=== PATIENT | male | born 1965 ===

== ENCOUNTER → 2021-01-11 | Outpatient (CLI) | payer BC, OTHER ==
[~2021-01-11] VITALS: Ht 180.3 cm; Wt 120.2 kg
[~2021-01-11] MED LIST: ADDERALL 30 MG30 MG PO; ADVIL PM CAPLE1 EACH PO; FLEXERIL PO; HYDROCODON-ACE1 EAC8 PO; PROZAC40 MG PO; VALIUM10 MG PO
[2021-01-11 10:34] VITALS: BP 121/80
--- NOTE | 2021-01-11 11:17 | NUR ---
Pain Clinic Assessment: 1. History of Osteoarthritis: SPINE JOINTS History of Rheumatoid Arthritis: UNKNOWN 2. Height: 5 ft. 11 in. 180.3 cm. Weight: 265.0 lb. oz. 120.204 kg. Patient's BMI: 37.0 3. Vital Signs: BP: 121/80 Pulse: 98 Resp: 20 Temp: 02 Sat: 98 ECG Mon: 4. Pain Intensity: 2 UP TO 10 (WORST IN AM) 5. Fall Risk: Dizziness: N Needs help standing or walking: N Fallen in the last 3 months: N Fall risk comments: 6. Patient on Blood Thinner: None 7. History of Hypertension: N 8. Opioid Therapy greater than 6 weeks: Y Opiate Contract Signed: 9. Risk Assessment Tool Provided: LOW-3 10. Functional Assessment Tool: 37/ 11. Recreational Drug Use: Never Drug Type: Tobacco Use: Never Smoker Tobacco Type: Amount or Packs/day: How Many Years: Alcohol Use: No Frequency: Quant:
--- NOTE | 2021-02-16 08:05 | HPC ---
[facility] [place] [address] PAIN MANAGEMENT CONSULTATION Name: WILLIAM BAY [facility] [id number] Admission: 01/11/21 Attend Phys: Ramiro Reyna DO Discharge: Date of : 65 Report #: [id number] THIS REPORT FOR: cc: Vikas Liu,Ramiro Harris DO ~ cc: Vikas Liu DO DATE OF SERVICE: 01/11/2021 REFERRING PHYSICIAN: Vikas Liu DO CHIEF COMPLAINT: Back pain, bilateral lower extremity pain. HISTORY OF PRESENT ILLNESS: As you know, the patient is a 55-year-old male referred to our service by his primary care physician, Dr. Liu for evaluation for lumbar radiculopathy involving low back and right lower extremity. The patient indicates pain has been present since he was in his mid 20s. He states pain has progressively worsened. There has been no inciting injury or trauma. The patient has trialed conservative treatment without benefit or minimal benefit. Due to lack of improvement with conservative treatment, the patient was referred on to our clinic to discuss treatment options. The patient reports today his pain is constant. He describes the pain more as a shooting, aching, throbbing, pounding, sharp and stabbing. Places current pain score at 2/10, daily average of 5/10, worst pain is 10+/10. 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 Lying on the floor and sleeping improves with p.r.n. Vicodin being provided by his primary care physician. The patient has been referred to our service to discuss interventional treatment options to address lumbar radiculopathy. PAST MEDICAL HISTORY: 1. Depression. 2. Emotional problems. 3. Obesity. 4. Generalized anxiety disorder. 5. OCD/depression. 6. Low testosterone levels. 7. BiPAP-dependent sleep apnea. PAST SURGICAL HISTORY: 1. Appendectomy. 2. Herniorrhaphy. SOCIAL HISTORY: The patient denies tobacco use. Denies IV or illicit drug use. Denies any chronic alcohol use. He is a respiratory therapist. He is working, [facility] [address] [place] [address] PAIN MANAGEMENT CONSULTATION Name: WILLIAM BAY Room #: [facility]#: [id number] Admission: 01/11/21 Attend Phys: Ramiro Reyna DO Discharge: Date of : 65 Report #: [id number] not receiving workmen's compensation nor is he trying to obtain disability benefits. He is not in litigation in regards to pain. He is unaccompanied today. REVIEW OF SYSTEMS: Positive for fatigue and weakness, wearing corrective eyewear, tinnitus, earaches with drainage, chronic sinus problems with rhinitis, frequent urination, nocturia, change of force and streaming urination, kidney stones, sexual difficulty, low back pain, right lower extremity pain, depression, numbness and tingling sensations and anxiety disorder. All other review of systems negative per 12-point review of systems other than those listed in history of present illness. Pain impact score 37/70, moderate interference of daily activities secondary to pain. ALLERGIES: No reported drug allergies. CURRENT MEDICATIONS: Cyclobenzaprine 10 mg p.o. at bedtime, Advil PM 1 tab p.o. at bedtime, diazepam 10 mg p.o. at bedtime, hydrocodone/acetaminophen 7.5/325 every 6 hours p.r.n. pain, Adderall 30 mg once a day, fluoxetine 40 mg once a day. IMAGING: MRI of lumbar spine shows benign hemangioma at L4, [id number] [id number] lumbar degenerative facet arthrosis. No central canal or neural foraminal stenosis. Mild disk changes at L3-L4 and L4-L5. PHYSICAL EXAMINATION: VITAL SIGNS: Blood pressure 121/80, pulse 98, respiratory rate 20, unlabored. The patient is 98% on room air. Height 5 feet 11 inches tall, weight 265 pounds, BMI calculated 37.0. GENERAL: Well-developed, well-nourished, well-hydrated, exogenously obese 55-year-old male, appearing stated age, pain is rated up to 10/10 depending on activity. HEENT: Normocephalic, atraumatic. Pupils are equal, round and responsive. He is deemed a good historian. He is wearing a mask in compliance with COVID-19 regulations. LUNGS: Appear clear. No wheeze, rhonchi or rales. CARDIOVASCULAR: Regular. No appreciable gallop or rub. ABDOMEN: Soft, obese, normoactive bowel sounds. EXTREMITIES: Show no clubbing, no cyanosis, no edema. MUSCULOSKELETAL: Lower extremity strength equal and symmetrical 5/5. Slight giveaway strength noted with hip flexion, knee extension on the right. Pain is elicited with maneuver. Seated straight leg raising is negative. Supine straight leg raising is positive on the right. Fabere's test is negative. Modified Gaenslen's positive for axial back pain. Ankle clonus negative. Babinski is negative. Gait appears mildly antalgic favoring right lower [address] [address] PAIN MANAGEMENT CONSULTATION Name: WILLIAM BAY Room #: REG [facility]#: [id number] Admission: 01/11/21 Attend Phys: Ramiro Reyna DO Discharge: Date of : 65 Report #: [id number] extremity. He is able to toe walk and heel walk. ASSESSMENT: 1. Symptomatic lumbar radiculopathy. 2. Displacement of lumbar intervertebral disk with radiculopathy. 3. Lumbosacral spondylosis with radiculopathy. 4. Chronic intractable pain. PLAN: 1. The patient has been referred to our clinic by his primary care physician, Dr. Liu for evaluation to discuss treatment options including lumbar epidural injections. The patient has failed conservative treatment utilizing [id number] medications, rest, relaxation and home stretching exercises and has moved on to referral to our clinic to trial epidural injections under fluoroscopic guidance. We have reviewed with the patient the findings of his MRI and I am pleased to advise the patient there are no significant findings that would require surgical options, though we did discuss with the patient the treatment options we have available. Following was discussed with the patient today. We discussed physical therapy, stretching exercise, core strengthening and a concerted effort at weight loss as a treatment option. We discussed medication management with suggestions of treatment to include amitriptyline, nortriptyline, Cymbalta, Lyrica or gabapentin for neuropathic pain control. We discussed lumbar epidural injection under fluoroscopic guidance for which the patient was referred to our clinic. We also discussed surgical options, though as indicated above, there is no pathology consistent with a need for surgical options at this time. After reviewing risks and benefits of all proposed treatment options, the patient chose to move forward with a lumbar epidural injection under fluoroscopic guidance. 1. The patient was advised due to third green party payer restrictions authorization would have to be obtained before the patient could undergo an epidural injection. We will begin that process immediately. I am hopeful we will have this process completed quickly and the patient can return to undergo the first in a series of lumbar epidural injections. 2. No medication changes made at today's visit. We would recommend the patient continue current medical therapy as prior prescribed. He is on appropriate medication at this time and I would not recommend any changes. 3. We will see the patient back in followup visit once we have achieved authorization for him to undergo the first in a series of lumbar epidural injections. I am hopeful the patient will see good and prolonged benefit with that procedure. 4. I have recommended the patient undergo AP and lateral thoracic film x-rays. He is complaining of mid back pain that has been plaguing him for some time. We will have the patient undergo the x-ray imaging. We will review those findings, though from a physical exam standpoint, appears to be myofascial in origin. [address] [address] PAIN MANAGEMENT CONSULTATION Name: SHANIQUEWILLIAM Room #: REG [facility]#: [id number] Admission: 01/11/21 Attend Phys: Ramiro Reyna DO Discharge: Date of : 65 Report #: [id number] X-ray imaging will be obtained and we will review those findings and provide those to you once they are completed. 5. We wish to thank Dr. Liu for the referral of this patient to our clinic. We will keep you apprised of response to treatment as we address chronic low back pain and right lower extremity symptoms. Again, we wish to thank you for the opportunity to see the patient in consultation. <ELECTRONICALLY SIGNED> By: Ramiro Reyna DO 02/16/21 [id number] Ramiro Reyna DO /nt
== END ==
LOC: PAIN 07:05 → RAD 07:05 → PAIN 14:02
PROVIDERS: ATTEND Anesthesiology Pain Medicine
DX: G89.29 Other chronic pain (principal); M51.16 Intervertebral disc disorders with radiculopathy, lumbar region; M47.26 Other spondylosis with radiculopathy, lumbar region; M25.78 Osteophyte, vertebrae; Z90.49 Acquired absence of other specified parts of digestive tract

== ENCOUNTER → 2021-01-14 | Outpatient (CLI) | payer BC, OTHER ==
[~2021-01-14] VITALS: Ht 180.3 cm; Wt 120.2 kg
[2021-01-14 07:14] VITALS: BP 125/76
--- NOTE | 2021-01-18 09:20 | HPC ---
[address] [address] PAIN MANAGEMENT CONSULTATION Name: WILLIAM BAY Room #: REG [facility] Geovany#: [id number] Admission: 01/14/21 Attend Phys: Ramiro Reyna DO Discharge: Date of : 65 Report #: [id number] THIS REPORT FOR: cc: Vikas Liu,Vikas Tan,Ramiro Doe DO ~ cc: Vikas Liu MD DATE OF SERVICE: 01/14/2021 CHIEF COMPLAINT: Low back pain, right lower extremity pain with paresthesias, chronic thoracic pain. HISTORY OF PRESENT ILLNESS: As you know, the patient is a 55-year-old male referred to our service by his primary care physician, Dr. Liu, for evaluation for lumbar radiculopathy involving low back and right lower extremity. The patient apparently has seen another pain clinic, but was unhappy with the treatment options. He was subsequently referred to our clinic where he was seen in consultation on 01/11/2021 where he is complaining of low back pain, right lower extremity pain and mid back pain. We discussed the treatment options we have available for the patient to address low back and lower extremity symptoms. He made today's appointment to undergo lumbar epidural injection under fluoroscopic guidance. The patient reports pain today at our followup visit of 07/07. He is denying any changes in medication management since our last visit 3 days ago and has not had any changes in his health. He returns today for the first in a series of lumbar epidural injections under fluoroscopic guidance to address suspected lumbar radiculopathy. ALLERGIES: No known drug allergies. CURRENT MEDICATIONS: Fluoxetine, Adderall, hydrocodone, diazepam, ibuprofen, cyclobenzaprine. SOCIAL HISTORY: The patient denies tobacco, alcohol, IV or illicit drug use. He is working, not receiving workmen's compensation, unaccompanied today. IMAGING: No new imaging available. PHYSICAL EXAMINATION: VITAL SIGNS: Blood pressure 125/76, pulse 99, respiratory rate 18 and unlabored. The patient 97% on room air. Height 5 feet 11 inches tall, weight 265 pounds, BMI calculated 37.0. GENERAL: Well-developed, well-nourished, well-hydrated exogenously obese 55-year-old male, appearing stated age, pain is rated today 3/10. HEENT: Normocephalic, atraumatic. Pupils equal, round and responsive. The patient is deemed a good historian. He is wearing a mask in compliance with COVID-[place] [address] PAIN MANAGEMENT CONSULTATION Name: WILLIAM BAY Room #: REG [facility]#: [id number] Admission: 01/14/21 Attend Phys: Ramiro Reyna DO Discharge: Date of : 65 Report #: [id number] EXTREMITIES: Show no clubbing, no cyanosis. No appreciable edema. MUSCULOSKELETAL: Lower extremity strength equal and symmetrical 5/5. Slight giveaway strength noted with hip flexion, knee extension on the right when compared to the left. This causes intensification of pain. Seated straight leg raising negative. Supine straight leg raising positive on the left. Pavithra's test is negative. Modified Gaenslen's positive for axial low back pain. Ankle clonus negative. Babinski is negative. ASSESSMENT: 1. Symptomatic lumbar radiculopathy. 2. Displacement of lumbar intervertebral disk with radiculopathy. 3. Lumbosacral spondylosis with radiculopathy. 4. Chronic intractable pain. PLAN: 1. The patient returns today in followup visit having received authorization to undergo lumbar epidural injection under fluoroscopic guidance. The patient has also been able to clear his schedule in preparation for today's procedure. The patient has been advised of the risks and the benefits of a lumbar epidural injection. These risks include, but are not necessarily limited to; bleeding, bruising, infection, worsening of pain, no relief of pain, temporary or permanent muscle weakness, temporary or permanent nerve damage, possible paralysis, and . The patient states understood and wished to proceed. 2. No medication changes made at today's visit. The patient will continue current medical therapy as prior prescribed. 3. We will plan to see the patient back in followup visit on an as needed basis for the next in the series of lumbar epidural injections. PROCEDURE NOTE DESCRIPTION OF PROCEDURE: L5-S1 right parasagittal epidural steroid injection under fluoroscopic guidance. This is the first procedure of the first series that the patient is undergoing. After obtaining written consent, the patient was taken back to the fluoroscopy suite, placed in a prone position with pillow under the abdomen to decrease lumbar lordosis. The skin overlying the lumbosacral area was then prepped and draped in aseptic fashion. The L5-S1 vertebral interspace was then identified by AP fluoroscopy. The skin and subcutaneous tissue overlying the target site of injection was anesthetized with 3 mL 1% lidocaine. A 20 gauge 3-1/2 inch Tuohy needle was then advanced under fluoroscopic guidance towards the epidural space using a right parasagittal approach. The epidural space was identified using loss of resistance to air technique. After negative aspiration for heme or cerebrospinal fluid, a total of 1 mL of Omnipaque was [address] [address] PAIN MANAGEMENT CONSULTATION Name: WILLIAM BAY Room #: [facility]#: [id number] Admission: 01/14/21 Attend Phys: Ramiro Reyna DO Discharge: Date of : 65 Report #: [id number] injected. A lumbar epidurogram was confirmed using both AP and lateral fluoroscopy. After negative aspiration for heme or cerebrospinal fluid, 5 mL solution containing 2 mL 40 mg per mL 80 mg total triamcinolone along with 3 mL of lidocaine, 1% was injected in increments. Contrast spread was noted in posterior epidural space. The needle was then retracted approximately half way and needle tract flushed with 1 mL of 1% lidocaine. Needle was then removed. There were no apparent sensory or motor deficits in the lower extremity following the procedure. A sterile bandage was placed over the injection site. The heart rate, pulse, oximetry and blood pressure were continuously monitored after the procedure. There were no apparent complications. The patient tolerated the procedure well and was carefully escorted to the recovery room in stable condition. There were no apparent complications. After meeting discharge criteria, the patient was then discharged home. <ELECTRONICALLY SIGNED> By: Ramiro Reyna DO 01/18/21919 1 1 Ramiro Reyna DO /nt
== END | disposition home or self-care (01) ==
LOC: PAIN 06:53
PROVIDERS: ATTEND Anesthesiology Pain Medicine
DX: M51.16 Intervertebral disc disorders with radiculopathy, lumbar region (principal); M47.27 Other spondylosis with radiculopathy, lumbosacral region; G89.29 Other chronic pain; Z98.890 Other specified postprocedural states; Z79.899 Other long term (current) drug therapy; Z88.8 Allergy status to other drugs, medicaments and biological substances